=== PATIENT | female | born 1975 | race Caucasian/White ===

== ENCOUNTER 2018-03-31 16:20 | Emergency (ER) | payer MEDICARE, MEDICAID ==
[~2018-03-31] VITALS: Ht 152.4 cm; Wt 125.0 kg
[~2018-03-31 16:20] MED LIST: CALC-642 PO; CHOL100010 PO; CITA-278 PO; CLOT14.2 TP; COL100C PO; FAMO-129 PO; FURO40TA4 PO; HYDR-569 PO; IRON18TA PO; LANS30CA37 PO; LEVO50TA67 PO; METF1000 PO; MOME17SP NS; MUPI15CR4 TP; NAPR-1144 PO; NAPR-232 PO; NORG1TAB56 PO; ONDA4TAB9 PO; PIOG15TA8 PO; POTA20TA39 PO; RISE35TA PO; SIMV20TA5 PO; TOP100T PO; VITA400T8 PO; VITC500T PO; WEL100T PO; [UNRECOGNIZED DRUG - CODE] PO
[2018-03-31 17:07] LABS: BASOPHILS # (AUTO) 0.1 X10'3 (0-0.2); BASOPHILS % (AUTO) 0.5 % (0-1); EOSINOPHILS % (AUTO) 0.2 % (0-6); HEMATOCRIT 41.9 % (35.0-45.0); HEMOGLOBIN 13.5 g/dl (12.0-16.0); LYMPHOCYTES # (AUTO) 0.4 X10'3 (1.1-4.8); LYMPHOCYTES % (AUTO) 2.7 % (21-51); MEAN CORPUSCULAR HEMOGLOBIN 25.8 PG (27.0-31.0); MEAN CORPUSCULAR HGB CONC 32.1 % (33.0-36.5); MEAN CORPUSCULAR VOLUME 80.2 FL (78-98); MONOCYTES # (AUTO) 0.2 X10'3 (0-0.9); MONOCYTES % (AUTO) 1.3 % (2-12); NEUTROPHILS # (AUTO) 13.8 X10'3 (1.8-7.7); NEUTROPHILS % (AUTO) 95.3 % (42-75); PLATELET COUNT 324 X10'3 (140-440); RED BLOOD COUNT 5.22 X10'6 (4.20-5.60); RED CELL DISTRIBUTION WIDTH 15.8 % (11.5-14.5); WHITE BLOOD COUNT 14.5 X10'3 (4.5-11.0)
[2018-03-31 17:18] LABS: INR 0.9 INR; PROTHROMBIN TIME 9.4 SECONDS (9.0-12.0)
[2018-03-31 17:22] LABS: ALANINE AMINOTRANSFERASE 29 U/L (12-78); ALBUMIN 3.1 G/DL (3.4-5.0); ALBUMIN/GLOBULIN RATIO 0.7 (1.1-1.5); ALKALINE PHOSPHATASE 121 IU/L (46-116); ANION GAP 10 (8-16); ASPARTATE AMINO TRANSFERASE 14 U/L (10-37); BILIRUBIN,TOTAL 0.5 MG/DL (0.1-1.0); BLOOD UREA NITROGEN 16 MG/DL (7-18); BUN/CREATININE RATIO 23.2 (6.6-38.0); CALCIUM 8.6 MG/DL (8.5-10.1); CHLORIDE 96 MMOL/L (99-107); CREATININE 0.69 MG/DL (0.40-0.90); GLUCOSE 186 MG/DL (70-104); LIPASE 152 U/L (73-393); SODIUM 132 MMOL/L (135-145); TOTAL CARBON DIOXIDE 25.9 MMOL/L (24-32); TOTAL PROTEIN 7.3 G/DL (6.4-8.2); eGFR > 90 ML/MIN
[2018-03-31 18:12] LABS: ANISOCYTOSIS 1+; PLATELET ESTIMATE NORMAL; TOTAL CELLS COUNTED 100
[2018-03-31] MEDS ORDERED: FERR325T32 PO (20:47)
[2018-03-31 21:06] LABS: CLARITY,URINE CLEAR (Clear); COLOR,URINE YELLOW (Yellow); GLUCOSE, URINE NEGATIVE (Neg); KETONES,URINE TRACE mg/dl (Neg); LEUKOCYTE ESTERASE ,URINE NEGATIVE (Neg); NITRITES, URINE NEGATIVE (Neg); OCCULT BLOOD,URINE TRACE-INTACT (Neg); PROTEIN,URINE NEGATIVE (Neg); UROBILINOGEN,URINE 0.2 E.U/dL (0.2-1.0)
[2018-03-31 21:16] LABS: UA COLLECTION TYPE STRAIGHT CATH
[2018-03-31 21:27] LABS: URINE HCG NEGATIVE (NEG)
[2018-03-31 21:42] LABS: BACTERIA,URINE FEW /HPF (Neg); MUCUS STRANDS MODERATE /LPF (Neg); RBC,URINE 0-2 /HPF (0-2); SQUAMOUS EPITHELIAL CELL,UR MODERATE /LPF (FEW); WBC,URINE 0-4 /HPF (0-4)
[2018-03-31] MEDS ORDERED: HYDROcodone/acetaminophen 10/325mg tab PO ONE (23:20)
[2018-04-01] VITALS: BP 147/82
== END 2018-04-01 00:41 | disposition home or self-care (01) ==
LOC: ER 16:20
DX: R10.84 Generalized abdominal pain (principal); E78.00 Pure hypercholesterolemia, unspecified; E11.9 Type 2 diabetes mellitus without complications; Q87.1 Congenital malformation syndromes predominantly associated with short stature; Z98.890 Other specified postprocedural states; Z79.899 Other long term (current) drug therapy
CPT/HCPCS: 36415; 74176; 80053; 81001; 81025; 83690; 85025; 85610; 99285; J7030

== ENCOUNTER 2018-04-01 17:16 | Emergency (ER) | payer MEDICARE, MEDICAID ==
[~2018-04-01] VITALS: Ht 152.4 cm; Wt 126.5 kg
[~2018-04-01 17:16] MED LIST changes: +FERR325T32 PO; -IRON18TA PO
[2018-04-01 17:22] VITALS: BP 129/75
== END 2018-04-01 18:37 | disposition home or self-care (01) ==
LOC: ER 17:16
DX: R10.84 Generalized abdominal pain (principal); E78.00 Pure hypercholesterolemia, unspecified; E11.9 Type 2 diabetes mellitus without complications
CPT/HCPCS: 99284

== ENCOUNTER 2024-11-08 09:02 | Emergency (ER) | payer MEDICARE, MEDICAID ==
[~2024-11-08] VITALS: Ht 147.3 cm; Wt 114.7 kg
[~2024-11-08 09:02] MED LIST changes: +CITA-178 PO; -CITA-278 PO; +HYDR-4383 PO; -HYDR-569 PO; -MOME17SP NS; +MOME17SP5 NS; -NORG1TAB56 PO; +NORG1TAB90 PO; +SIMV-42 PO; -SIMV20TA5 PO
[2024-11-08] MEDS: LIDOcaine 1% W/epiNEPHrine 1:100,000 20ml vial SQ ONE (09:26)
[2024-11-08] MEDS ORDERED: BACI1PAC7 TOP (11:07)
[2024-11-08 11:14] VITALS: BP 134/86; PULSE 78; RESP 16; TEMP 98.8; O2SAT 98
== END 2024-11-08 11:15 | disposition home or self-care (01) ==
LOC: ER 09:03
DX: L02.415 Cutaneous abscess of right lower limb (principal); L03.115 Cellulitis of right lower limb; E11.9 Type 2 diabetes mellitus without complications; E78.00 Pure hypercholesterolemia, unspecified
CPT/HCPCS: 99282; A6223